=== PATIENT | male | born 1945 | race Caucasian/White ===

== ENCOUNTER 2017-06-13 05:26 | Day surgery (SDC) | payer OTHER ==
[2017-06-03 10:52] VITALS: Ht 172.7 cm; Wt 92.9 kg
--- NOTE | 2017-06-03 11:22 | PAT Medication Instructions ---
Service Date Jun 03, 2017. Current Home Medication List Aspirin (Aspirin Ec), 81 MG PO QPM Celecoxib (CeleBREX), 200 MG PO QAM Fenofibrate (Tricor ), 134 MG PO QPM Fish Oil (Dennis-3), 1,200 MG PO BID Agydheuchnf-Gblysgidoki-Sls C- (Glucosamine Chondroitin), 1 TAB PO BID Liraglutide (Victoza), 1.2 MG INJ QAM Lisinopril (Prinivil), 20 MG PO BID Metformin Hcl (Glucophage), 500 MG PO BID Pioglitazone (Actos), 15 MG PO QAM Simvastatin (Zocor), 40 MG PO QPM Medication Instructions For Your Scheduled Surgery - Hold the following medications 10 days prior to surgery: Celecoxib (CeleBREX), 200 MG PO QAM (per surgeon's instructions) Fish Oil (Dennis-3), 1,200 MG PO BID Spdgrdklknd-Hdurbgqfcvo-Hvh C- (Glucosamine Chondroitin), 1 TAB PO BID - Hold the following medications 48 hours prior to surgery: Metformin Hcl (Glucophage), 500 MG PO BID - Hold the following medications 24 hours prior to surgery: Fenofibrate (Tricor ), 134 MG PO QPM Lisinopril (Prinivil), 20 MG PO BID - Hold the following medications the morning of surgery: Pioglitazone (Actos), 15 MG PO QAM - Take the following medications the morning of surgery: Liraglutide (Victoza), 1.2 MG INJ QAM - Take the following medications as scheduled the night before surgery: Aspirin (Aspirin Ec), 81 MG PO QPM Simvastatin (Zocor), 40 MG PO QPM If you have any questions please call us at [phone] or [phone] or [phone]
--- NOTE | 2017-06-03 11:59 | DIAGNOSTIC IMAGING REPORT ---
CHEST PREADMISSION(PA/LAT) CLINICAL HISTORY: Preoperative evaluation. COMPARISON STUDY: No previous studies for comparison. FINDINGS: Lung volumes are normal. There is no pneumothorax or pleural effusion. There is no evidence of pulmonary edema. There is mild enlargement of the cardiac silhouette. No consolidation to suggest pneumonia is noted. A 9 mm nodular density projects over the right upper lung and anterior right second rib. IMPRESSION: 1. 9 mm nodular density which projects over the right upper lung. This could reflect a rib lesion or calcified pulmonary nodule however a chest CT is recommended to exclude a noncalcified pulmonary nodule. 2. No acute cardiopulmonary findings. 3. Mild cardiomegaly. Electronically signed by: Shoaib Leos M.D. 06/03/2017 11:58 AM Dictated Date/Time: 06/03/2017 11:54 AM
[2017-06-03 12:00] LABS: BASO % 0.8 %; BASO ABS # 0.05 K/uL (0-0.2); COMPLETE YES; EOS % 5.3 %; HEMATOCRIT 43.4 % (42-52); IG% 0.3 %; LYMPH % 36.1 %; LYMPH ABS # 2.13 K/uL (1.2-3.4); MEAN CELL VOLUME 95.8 fL (80-100); MEAN CORPUSCULAR HEMOGLOBIN 31.6 pg (25-34); MEAN CORPUSCULAR HGB CONC 32.9 g/dl (32-36); MEAN PLATELET VOLUME 10.9 fL (7.4-10.4); MONO % 8.3 %; NEUT % 49.2 %; PLATELET COUNT 175 K/uL (130-400); RED BLOOD COUNT 4.53 M/uL (4.7-6.1)
[2017-06-03 12:04] LABS: URINE APPEARANCE CLEAR (CLEAR); URINE BILIRUBIN NEG (NEG); URINE COLOR YELLOW; URINE NITRITE NEG (NEG); URINE SPECIFIC GRAVITY 1.022 (1.000-1.030); UROBILINOGEN NEG (NEG)
[2017-06-03 12:09] LABS: MANUAL MICROSCOPIC REQUIRED? NO; REVIEW REQ? NO
[2017-06-03 12:16] LABS: PROTHROMBIN TIME (PATIENT) 10.7 SECONDS (9.0-12.0)
[2017-06-03 12:43] LABS: BUN/CREATININE RATIO 15.4 (10-20); CALCIUM 9.4 mg/dl (8.5-10.1); CREATININE 1.3 mg/dl (0.60-1.40); POTASSIUM 4.4 mmol/L (3.5-5.1)
[~2017-06-13] VITALS: Ht 172.7 cm; Wt 92.9 kg
[~2017-06-13 05:26] MED LIST: ACT30 PO; ASPI81TA28 PO; CLB/200 PO; FENO134C2 PO; GLC/500 PO; GLUCTAB7 PO; LIRA18IN INJ; LISI20TA3 PO; OMEG10007 PO; SIMV40TA2 PO
[2017-06-13 06:00] VITALS: BP 157/85; PULSE 72; TEMP 37; O2SAT 96
[2017-06-13] MEDS ORDERED: LACTATED RINGER'S 1000ML 1,000 ML IV SCH (06:00)
[2017-06-13] MEDS ORDERED: CEFAZOLIN 2000 MG/60 ML D5W IV SCH (06:00)
[2017-06-13] MEDS ORDERED: FENTANYL CITRATE INJ 50 MCG/1 ML 2 ML VIAL ONE (07:02)
[2017-06-13] MEDS ORDERED: MIDAZOLAM HCL 1 MG/ML 2ML VIAL ONE (07:02)
[2017-06-13] MEDS ORDERED: THROMBIN FOR SOLN 20000 UNIT KIT ONE (07:02)
[2017-06-13] MEDS ORDERED: BUPIVACAINE/EPINEPHRINE 0.5% MPF 1:200,000 10 ML VIAL ONE (07:02)
[2017-06-13] MEDS ORDERED: THROMBIN 5000 UNITS KIT ONE (07:02)
[2017-06-13] MEDS ORDERED: BACITRACIN 50000 UNIT VIAL ONE (07:03)
[2017-06-13] MEDS ORDERED: HEPARIN SOD (PORCINE) 1000 UNIT/ML 10 ML VIAL ONE (07:03)
[2017-06-13] MEDS ORDERED: FLUMAZENIL 0.1 MG/1 ML 10 ML VIAL IV PRN (07:45)
[2017-06-13] MEDS ORDERED: MEPERIDINE HCL 25 MG/ML CARP IV PRN (07:45)
[2017-06-13] MEDS ORDERED: ONDANSETRON INJ 2 MG/ML 2 ML VIAL IV PRN ×2 (07:45→10:15)
[2017-06-13] MEDS ORDERED: MoRPHine SULFATE 10 MG/ML CARP/VIAL IV PRN (07:45)
[2017-06-13] MEDS ORDERED: PHENYLEPHRINE 100MCG/ML 5ML SYR IV PRN (07:45)
[2017-06-13] MEDS ORDERED: NALOXONE HCL 0.4 MG/1 ML VIAL/CARP IV PRN (07:45)
[2017-06-13] MEDS ORDERED: ATROPINE SULFATE 0.1 MG/ML 5ML SYR IV PRN (07:45)
[2017-06-13] MEDS ORDERED: LABETALOL HCL IV 5 MG/ML 20ML IV PRN (07:45)
[2017-06-13] MEDS ORDERED: EpHEDrine SULFATE INJ 50 MG/ML AMP IV PRN (07:45)
--- NOTE | 2017-06-13 07:52 | History & Physical Bridge Note ---
H&P Re-Evaluation Bridge Note: I have examined the patient, reviewed the History & Physical and in the interval since the performance of the History & Physical I have noted the following changes of clinical significance: He has some occasional right leg pain therefore we will decompress L4-5 bilaterally and do a left L5 -S1 micro. No changes noted
[2017-06-13] MEDS ORDERED: HYDROmorphone INJ 2 MG/ML SYR/VIAL ONE (08:16)
[2017-06-13] MEDS ORDERED: ONDANSETRON INJ 2 MG/ML 2 ML VIAL ONE (08:19)
[2017-06-13] MEDS ORDERED: LIDOCAINE HCL 2% 2 ML VIAL (20MG/ML) ONE (08:19)
[2017-06-13] MEDS ORDERED: LARYING-O-JET KIT (LTA) ONE ×2 (08:19)
[2017-06-13] MEDS ORDERED: GLYCOPYRROLATE INJ 0.2 MG/ML VIAL ONE (08:19)
[2017-06-13] MEDS ORDERED: DEXAMETHASONE SOD INJ 4 MG/ML VIAL ONE (08:19)
[2017-06-13] MEDS ORDERED: PROPOFOL IV EMULSION 10 MG/ML 20 ML VIAL IV ONE (08:19)
[2017-06-13] MEDS ORDERED: NEOSTIGMINE METHYLSULFATE 1 MG/ML 10ML VIAL ONE (08:19)
[2017-06-13] MEDS ORDERED: ROCURONIUM BROMIDE 10 MG/ML 5 ML VIAL ONE (08:19)
[2017-06-13] MEDS ORDERED: PHENYLEPHRINE 100MCG/ML 5ML SYR ONE (08:19)
[2017-06-13] MEDS ORDERED: FLOSEAL HEMOSTATIC MATRIX 5ML TOP ONE (08:32)
[2017-06-13] MEDS: HYDROmorphone INJ 1 MG/ML SYR IV PRN ×3 (09:40→09:54)
--- NOTE | 2017-06-13 09:59 | [facility] Post Operative Brief Note ---
Immediate Operative Summary Operative Date Jun 13, 2017. Pre-Operative Diagnosis L4-S1 SPINAL STENOSIS Post-Operative Diagnosis SAME PREOP Procedure(s) Performed LEFT L4-S1 DECOMPRESSION Surgeon DR. REBECA BHATTI Accessibility Lift Technician Surgeon(s) Yeimy ALCARAZ PAC Estimated Blood Loss 150ml Findings see op note Specimens NONE
[2017-06-13] MEDS ORDERED: SODIUM CHLORIDE 0.9% 1000ML 1,000 ML IV SCH (10:03)
--- NOTE | 2017-06-13 10:03 | [facility] Operative Report ---
Operative Report Operative Date Jun 13, 2017. Pre-Operative Diagnosis L4-S1 SPINAL STENOSIS Post-Operative Diagnosis SAME PREOP Procedure(s) Performed 1. L4-5 decompression 2. Left L5-S1 microdiscectomy Surgeon DR. REBECA BHATTI Drum Cleaner Surgeon(s) Yeimy ALCARAZ PAC Estimated Blood Loss 150ml Findings see below Specimens NONE Complication(s) None Description of Procedure DESCRIPTION OF PROCEDURE: After identification of patient and operative level, the patient was brought to the OR where they underwent induction of general anesthesia. They were positioned prone on Vasiliy OR table. All bony prominences were well padded. Care was taken to avoid pressure on the periorbital area. Lumbosacral area was sterilely prepped and draped in usual fashion. Antibiotics were administered. Time-out was performed. Level was confirmed and skin incision was localized with spinal needle. I infiltrated the skin with Marcaine and placed the incision over the spinous process of L4-S1 , I exposed the left L4-s1 interlaminar window. After mobilization of the fascia, I identified the operative level with fluoroscopy and a marker and then marked this level. A gelpi retractor was placed and a small laminotomy was created under the caudal edge of L5. I removed the ligamentum flavum and identified the traversing nerve root, then protected it with a nerve root retractor and then identified the extruded disc fragment in the foramen. I removed the capsule around the disc fragment, removed loose disc fragments and swept and explored the disc space, and confirmed no further fragments were present. I then decompressed L4-5 with removal of the inferior half of L4 lamina and removing the medial facets. I completed decompression with kerrisons bilaterally at L4-5. I confirmed roots were decompressed. I then reconfirmed level, confirmed the nerve was decompressed and irrigated with bacitracin solution, applied FloSeal and closed in layered fashion. All sponge and needle counts were correct at the end of the case. I attest to the content of the Intraoperative Record and any orders documented therein. Any exceptions are noted below. I attest to the content of the Intraoperative Record and any orders documented therein. Any exceptions are noted below.
--- NOTE | 2017-06-13 10:07 | Anesthesiology Progress Note ---
Anesthesia Post Op Note Date & Time Jun 13, 2017 at 10:06 Vital Signs Pain Intensity: 3 Vital Signs Past 12 Hours Date Time Temp Pulse Resp B/P (MAP) Pulse Ox O2 Delivery O2 Flow Rate FiO2 06/13/17 09:13 36.4 71 16 126/73 98 Oxymask 15 06/13/17 06:00 37 72 18 157/85 (109) 96 Room Air Notes Mental Status: alert / awake / arousable, participated in evaluation Pt Amnestic to Procedure: Yes Nausea / Vomiting: adequately controlled Pain: adequately controlled Airway Patency, RR, SpO2: stable & adequate BP & HR: stable & adequate Hydration State: stable & adequate Anesthetic Complications: no major complications apparent
[2017-06-13] MEDS ORDERED: MoRPHine SULFATE 4 MG/ML 1 ML CARP\\VIAL IV PRN (10:15)
[2017-06-13] MEDS ORDERED: OXYCODONE HCL IR 5 MG TAB (IMMEDIATE RELEASE) PO PRN (10:15)
[2017-06-13 10:25] VITALS: TEMP 36.8
[2017-06-13] MEDS ORDERED: RXC5 PO (11:50)
--- NOTE | 2017-06-13 11:51 | Discharge Instructions ---
Discharge Instructions Date of Service Jun 13, 2017. Admission Reason for Admission: Herniated Nucleus Pulposus Discharge Discharge Diagnosis / Problem: same Discharge Goals Goal(s): Decrease discomfort Activity Recommendations Activity Limitations: per Instructions/Follow-up section . Instructions / Follow-Up Instructions / Follow-Up ACTIVITY RECOMMENDATIONS: SELF CARE INSTRUCTIONS AFTER A LAMINECTOMY 1. No prolonged sitting (less than 30 minutes for the first 3 weeks after surgery). 2. No bending, lifting more than 5 pounds, or twisting (roll like a log when turning in bed). 3. You may shower 3 days after surgery if no drainage from wound. Thoroughly dry wound. Do not soak in the tub. 4. Please walk as much as you can for exercise. Gradually increase the distance that you walk as your endurance increases. 5. You may drive in 7-10 days if you are comfortable and no longer requiring pain medications. SPECIAL CARE INSTRUCTIONS: VERY IMPORTANT TO READ AND REVIEW A. Your surgical incision has been closed with a cosmetic suture under the skin that will dissolve in about 6 weeks. In 14 days, you can use a pair of clean scissors and cut the suture that is left outside of the skin at the ends of your incision. B. Complications are uncommon, but please contact us if you have any signs or symptoms of: 1. wound infection (fever higher than 102.5 degrees F, redness, separation of wound, drainage, or increasing pain from the incision) 2. blood clots in legs (pain, swelling, redness and warmth in legs) 3. urinary tract infection (fever higher than 102.5 degrees, burning upon urination or increased frequency of urination) 4. nerve problems (inability to walk on your toes or heels, numbness, loss of bowel or bladder control) 5. any other symptoms that concern you. C. Please call the office at if you have any concerns or questions about your operation or recovery. MANAGING PAIN AFTER SPINAL SURGERY 1. Narcotic medication is intended for short-term use and will be provided for surgical pain. Surgical pain usually lasts for a period of 4-6 weeks. Narcotic medication includes Percocet, Vicodin, Darvocet, Tylenol #3 or Lortab. 2. Longer-term pain is more appropriately treated with non-narcotic medication such as Tylenol ES. 3. Muscle spasm is not appropriately treated with narcotics. Muscle relaxers such as Soma, Flexeril or Skelaxin can be used along with Tylenol ES. 4. Remember that we all live with some "aches and pains". This is not unusual or uncommon after an injury or as we get older. 5. We will provide appropriate medication within the normal guidelines of their prescribed use. We will also be very cautious and aware of potential abuse and extended duration of patients' medication needs. 6. Please allow 2-3 days to process refills. Prescriptions will not be mailed but must be picked up at the office. FOLLOW UP VISIT: Keep your scheduled follow-up appointment. Any questions, please call the office at . Current Hospital Diet Patient's current hospital diet: Discharge Diet Recommended Diet: Regular Diet Procedures Procedures Performed: 1. L4-5 decompression 2. Left L5-S1 microdiscectomy Pending Studies Studies pending at discharge: no Medical Emergencies . Who to Call and When: Medical Emergencies: If at any time you feel your situation is an emergency, please call 911 immediately. . Non-Emergent Contact Non-Emergency issues call your: Surgeon . "Provider Documentation" section prepared by Michael Cristobal. . VTE Core Measure Inpt VTE Proph given/why not?: [facility] [place] Drug Monitoring Program Search Results: patient reviewed within database, no issues identified ( checked by Mariam)
[2017-06-13 12:10] VITALS: BP 140/80; PULSE 83; O2SAT 96
--- NOTE | 2017-06-13 12:22 | DIAGNOSTIC IMAGING REPORT ---
SPINE ONE VIEW, ANY LEVEL HISTORY: 71 years Male L4-S1 DECOMPRESSION COMPARISON: None available TECHNIQUE: Single lateral spot fluoroscopic image of the lumbar spine was obtained utilizing 5.3 seconds of fluoroscopy time. Interpretation of the film was not conducted until after the procedure. FINDINGS/IMPRESSION: Film demonstrates metallic markers overlying the L4-L5 and L5-S1 levels. Intervertebral disc space narrowing is seen most prominently at the L5-S1 level. Please see operative report for further details. The above report was generated using voice recognition software. It may contain grammatical, syntax or spelling errors. Electronically signed by: Refugio Grewal M.D. 06/13/2017 12:21 PM Dictated Date/Time: 06/13/2017 12:19 PM
== END 2017-06-13 12:41 | disposition home or self-care (01) ==
LOC: C.ACU 05:26
PROVIDERS: ATTEND Orthopaedic Surgery Orthopaedic Surgery of the Spine
DX: M48.06 Spinal stenosis, lumbar region (principal); I10 Essential (primary) hypertension; E78.00 Pure hypercholesterolemia, unspecified; E11.9 Type 2 diabetes mellitus without complications; Z87.891 Personal history of nicotine dependence; Z79.84 Long term (current) use of oral hypoglycemic drugs; Z79.899 Other long term (current) drug therapy